=== PATIENT | female | born 2000 | race Caucasian/White ===

== ENCOUNTER 2022-05-13 11:38 | Emergency (ER) | payer OTHER ==
[~2022-05-13] VITALS: Ht 157.5 cm; Wt 108.0 kg
[2022-05-13 11:42] VITALS: BP 142/98
[2022-05-13] MEDS ORDERED: IBUP-2213 PO (12:17)
[2022-05-13] MEDS ORDERED: AMOX875T3 PO (12:17)
[2022-05-13] MEDS ORDERED: ACET-10509 PO (12:17)
[2022-05-13] MEDS ORDERED: IBUPROFEN 600 MG TAB PO ONE (12:20)
--- NOTE | 2022-05-13 12:26 | NUR ---
21YO FEMALE PT C/O L EARACHE X4DAYS. REPORTS INTERMITTENT SHARP PAIN W/ L FACIAL RADIATION AND DECREASE IN HEARING -RINGING. STATES MILD RELIEF AFTER OTC EARACHE RELIEF MEDICATION. DENIES INJURY, V/D, FEVER OR CHILLS. PT AAOX4, HOB POSITIONED PER COMFORT HX:DENIES NKA
--- NOTE | 2022-05-13 13:18 | NUR ---
Patient discharged with v/s stable. Written and verbal after care instructions ABOUT OTITIS MEDIA given and explained. Patient alert, oriented and verbalized understanding of instructions. Ambulatory with steady gait. All questions addressed prior to discharge. ID band removed. Patient advised to follow up with PMD. Rx of TYLENOL EXTRA STRENGTH, MOTRIN, AMOXICILLIN given. Patient educated on indication of medication including possible reaction and side effects. Opportunity to ask questions provided and answered.
== END 2022-05-13 13:18 | disposition home or self-care (01) ==
LOC: MED 11:38
DX: H66.92 Otitis media, unspecified, left ear (principal)
CPT/HCPCS: 99283